=== PATIENT | male | born 1945 | race Hispanic/Latino ===

== ENCOUNTER 2017-11-20 05:55 | Day surgery (SDC) | payer OTHER ==
[~2017-11-20] VITALS: Ht 157.5 cm; Wt 64.4 kg
[~2017-11-20 05:55] MED LIST: AMLO2.5T PO; LISI1TAB11 PO; METH-370 PO; METO-391 PO
[2017-11-20 06:25] VITALS: BP 165/75
[2017-11-20] MEDS ORDERED: SODIUM CHLORIDE 0.9% 1000ML 1,000 ML IV ONE (06:30)
[2017-11-20] MEDS ORDERED: LISI1TAB9 PO (06:52)
[2017-11-20] MEDS ORDERED: PROPOFOL 10 MG/ML 20ML VIAL IV ONE (07:54)
[2017-11-20 08:15] VITALS: BP 84/42
== END 2017-11-20 08:52 | disposition home or self-care (01) ==
LOC: DAH 05:55
PROVIDERS: ATTEND Internal Medicine Gastroenterology
DX: Z09 Encounter for follow-up examination after completed treatment for conditions other than malignant neoplasm (principal); I10 Essential (primary) hypertension; E03.9 Hypothyroidism, unspecified; M10.9 Gout, unspecified; K57.30 Diverticulosis of large intestine without perforation or abscess without bleeding; Z86.010 Personal history of colon polyps
CPT/HCPCS: 93005; A4606; G0105; J2704; J7030

== ENCOUNTER 2020-08-05 08:43 | Day surgery (SDC) | payer OTHER ==
[2020-08-02 10:58] LABS: BASOPHILS % (AUTO) 0.9 % (0.0-5.0); EOSINOPHILS % (AUTO) 2.7 % (0.0-8.0); HEMATOCRIT 40.6 % (42-54); LYMPHOCYTES % (AUTO) 31.5 % (21.0-51.0); MEAN CORPUSCULAR HEMOGLOBIN 28.9 pg (27.0-33.0); MEAN CORPUSCULAR HGB CONC 32.3 g/dL (32.0-36.0); MEAN CORPUSCULAR VOLUME 89.4 fL (79-99); MONOCYTES % (AUTO) 11.4 % (3.0-13.0); NEUTROPHILS % (AUTO) 53.2 % (40.0-77.0); PLATELET COUNT (AUTO) 347 K/uL (130-400); RED BLOOD CELL COUNT(AUTO) 4.54 MIL/uL (4.50-6.20); WHITE BLOOD COUNT (AUTO) 6.9 K/uL (4.8-10.8)
[2020-08-02 10:59] LABS: CREATININE 0.9 mg/dL (0.5-1.5); POTASSIUM 4.2 mmol/L (3.5-5.1)
[2020-08-04 09:03] VITALS: BP 142/64
--- NOTE | 2020-08-04 09:52 | NUR ---
RE: ABNORMAL EKG REPORTED EKG TO DR GUERRERO, NO NEW ORDERS RECEIVED.
[2020-08-05] VITALS (17 sets, daily range): BP systolic 135–155; BP diastolic 59–77
[~2020-08-05] VITALS: Ht 157.5 cm; Wt 61.1 kg
[~2020-08-05 08:43] MED LIST changes: +AMLO-257 PO; -AMLO2.5T PO; +GABA300C PO; -LISI1TAB11 PO; +LISI40TA4 PO; -METH-370 PO; -METO-391 PO; +METO-408 PO; +TAMS-1 PO
[2020-08-05] MEDS ORDERED: LACTATED RINGERS 1000ML 1,000 ML IV ONE (10:33)
[2020-08-05] MEDS ORDERED: LEVOFLOXACIN 500 MG/D5W 100 ML 100 ML ONE (10:34)
[2020-08-05] MEDS ORDERED: FENTANYL CITRATE PF 50 MCG/1 ML 2ML VIAL ONE (12:15)
[2020-08-05] MEDS ORDERED: GLYCOPYRROLATE 1 MG/5 ML SYRINGE ONE (12:15)
[2020-08-05] MEDS ORDERED: NEOSTIGMINE 5MG/5ML SYR IV ONE (12:15)
[2020-08-05] MEDS ORDERED: ROCURONIUM 10MG/1ML SYR 10 MG/ML ML ONE (12:15)
[2020-08-05] MEDS ORDERED: SUCCINYLCHOLINE 200MG/10ML SYR ONE ×2 (12:15→12:19)
[2020-08-05] MEDS ORDERED: PROPOFOL 10 MG/ML 20ML VIAL IV ONE (12:15)
[2020-08-05] MEDS ORDERED: ONDANSETRON HCL 4 MG/2 ML VIAL ONE (12:15)
[2020-08-05] MEDS ORDERED: DEXAMETHASONE SOD PHOSPHATE 10MG/ML 1ML VIAL ONE (12:15)
[2020-08-05] MEDS ORDERED: LIDOCAINE PF 2% 5ML ABBOJECT ONE (12:15)
[2020-08-05] MEDS ORDERED: OPIUM/BELLADONNA ALKALOIDS 1 EACH SUPP.RECT RC ONE (13:03)
[2020-08-05] MEDS ORDERED: SUGAMMADEX SODIUM 200 MG/2 ML VIAL IV ONE (13:30)
--- NOTE | 2020-08-05 14:30 | NUR ---
RECOVERY RECEIVED IN DAY PT ROOM 4. NO S/S OF DISTRESS NOTED. DENIES PAIN. A&O. SIDE RAILS X2. VS STABLE.
--- NOTE | 2020-08-05 14:45 | NUR ---
RECOVERY GRIFFIN CATHETER BAG CHANGED TO LEG BAG. TOLERATED WELL. 400ML CLEAR YELLOW URINE DISCARDED. NEW GRIFFIN BAG GIVEN TO PT. SON AT BEDSIDE. TEACHING ON CHANGING BAG. VERBALIZED UNDERSTANDING. - CHRISTIANO JC
--- NOTE | 2020-08-05 15:10 | NUR ---
DISCHARGE ALL D/C INSTRUCTIONS AND RX GIVEN. VERBALIZED UNDERSTANDING. VS STABLE. DENIES PAIN. IV D/C NO REDNESS OR SWELLING NOTED. CATHETER INTACT. PRESSURE DRESSING APPLIED TO SITE. D/C TO SON AND SPOUSE VIA WHEELCHAIR. -EPORTALES RN
== END 2020-08-05 15:10 | disposition home or self-care (01) ==
LOC: DAH 08:43
PROVIDERS: ATTEND Urology
DX: N40.1 Benign prostatic hyperplasia with lower urinary tract symptoms (principal); Z20.828 Contact with and (suspected) exposure to other viral communicable diseases; R33.8 Other retention of urine; R39.14 Feeling of incomplete bladder emptying; N32.89 Other specified disorders of bladder; I10 Essential (primary) hypertension; Z79.899 Other long term (current) drug therapy; Z98.890 Other specified postprocedural states
CPT/HCPCS: 36415; 52648; 80048; 85025; 93005; A4215; A4216; A4221; A4222; A4223 ×3; A4340; A4354; A4358; A4510; A4600; A4606; A4663; C1769; C9803; J0330 ×2; J1100; J1956; J2001; J2405; J2704; J2710; J3010; J3490; J7120 ×2; U0003

== ENCOUNTER → 2024-05-11 | Outpatient (CLI) | payer OTHER ==
[~2024-05-11] MED LIST changes: +ALBUMIN (HUMAN) 5% 250 ML IV ONE; +EPINEPHRINE PF 1MG (1:1,000) 1 MG/ML AMP ONE; -LISI40TA4 PO; +LISI40TA9 PO; +NOREPINEPHRINE BITARTRATE 1 MG/1 ML ML IV ONE; +ROCURONIUM BROMIDE 10MG/1ML 5ML VL ONE; +VASOPRESSIN 20 UNITS/ML 1ML VIAL ONE
== END | disposition home or self-care (01) ==
LOC: CANSCHCLI → SHCH 08:40
PROVIDERS: ATTEND Student in an Organized Health Care Education/Training Program
DX: R94.31 Abnormal electrocardiogram [ECG] [EKG] (principal); R00.1 Bradycardia, unspecified
CPT/HCPCS: 93306; J0171; J3490; P9045

== ENCOUNTER → 2024-07-22 | Outpatient (CLI) | payer OTHER ==
[~2024-07-22] MED LIST changes: -ALBUMIN (HUMAN) 5% 250 ML IV ONE; -EPINEPHRINE PF 1MG (1:1,000) 1 MG/ML AMP ONE; -NOREPINEPHRINE BITARTRATE 1 MG/1 ML ML IV ONE; -ROCURONIUM BROMIDE 10MG/1ML 5ML VL ONE; -VASOPRESSIN 20 UNITS/ML 1ML VIAL ONE
[2024-07-22 12:23] LABS: HEMOGLOBIN A1C 6.2 % (4.0-6.0)
[2024-07-22 12:37] LABS: BILIRUBIN,TOTAL 0.7 mg/dL (0.2-1.0); POTASSIUM 4.1 mmol/L (3.5-5.1)
== END | disposition home or self-care (01) ==
LOC: LAB 08:07
PROVIDERS: ATTEND Internal Medicine Cardiovascular Disease
DX: I10 Essential (primary) hypertension (principal); E78.5 Hyperlipidemia, unspecified; Z79.899 Other long term (current) drug therapy
CPT/HCPCS: 36415; 80053; 80061; 83036